=== PATIENT | male | born 1960 | race Caucasian/White ===

== ENCOUNTER 2016-10-22 19:56 | Emergency (ER) | payer OTHER ==
[~2016-10-22] VITALS: Ht 180.3 cm; Wt 79.1 kg
[2016-10-22 19:59] VITALS: BP 133/94; PULSE 90; RESP 20; TEMP 99.6; O2SAT 96
[2016-10-22] MEDS ORDERED: SODIUM CHLORIDE 0.9% FLUSH 10 ML FLUSH IVF PRN (20:45)
--- NOTE | 2016-10-22 21:00 | RADHPO ---
EXAM DATE/TIME: 10/22/2016 20:45 [place] COMPARISON: No previous studies available for comparison. INDICATIONS : Shortness of breath and cough. MEDICAL HISTORY : None. SURGICAL HISTORY : None. ENCOUNTER: Initial ACUITY: 1 day PAIN SCORE: 0/10 LOCATION: Bilateral chest FINDINGS: PA and lateral views of the chest demonstrate the lungs to be symmetrically aerated without evidence of mass, infiltrate or effusion. The cardiomediastinal contours are unremarkable. Osseous structure s are intact. CONCLUSION: No evidence of acute cardiopulmonary disease. Ronal Valenzuela MD on October 22, 2016 at 20:58 Board Certified Radiologist. This report was verified electronically.
[2016-10-22 21:10] LABS: AUTOMATED NEUTROPHIL # 7.7 TH/MM3 (1.8-7.7); BASOPHIL # 0.4 TH/MM3 (0-0.2); BASOPHIL % 3.4 % (0.0-2.0); EOSINOPHIL % 0.2 % (0.0-4.0); HEMATOCRIT 43.2 % (39.0-51.0); LYMPH % 15.4 % (9.0-44.0); LYMPHOCYTE # 1.8 TH/MM3 (1.0-4.8); MEAN CELL VOLUME 96.5 FL (80.0-100.0); MEAN CORPUSCULAR HEMOGLOBIN 32.3 PG (27.0-34.0); MEAN CORPUSCULAR HGB CONC 33.5 % (32.0-36.0); MONO % 13.4 % (0.0-8.0); NEUT % 67.6 % (16.0-70.0); PLATELET COUNT 228 TH/MM3 (150-450); RED BLOOD COUNT 4.48 MIL/MM3 (4.50-5.90); RED CELL DISTRIBUTION WIDTH 13.1 % (11.6-17.2); WHITE BLOOD COUNT 11.4 TH/MM3 (4.0-11.0)
[2016-10-22 21:12] LABS: HEMO FLAGS DIFF FINAL
[2016-10-22 21:27] LABS: CHLORIDE 101 MEQ/L (98-107); POTASSIUM 3.7 MEQ/L (3.5-5.1); SODIUM (NA) 137 MEQ/L (136-145)
[2016-10-22 21:31] LABS: ANION GAP 9 MEQ/L (5-15); BICARBONATE 27.1 MEQ/L (21.0-32.0); BLOOD UREA NITROGEN 13 MG/DL (7-18)
[2016-10-22 21:34] LABS: ALT (GPT) 45 U/L (12-78); AST (GOT) 32 U/L (15-37); GLOMERULAR FILTRATION RATE 100 ML/MIN (>89)
[2016-10-22 21:36] LABS: TOTAL BILIRUBIN ADULT 0.4 MG/DL (0.2-1.0)
[2016-10-22 21:37] LABS: ALKALINE PHOSPHATASE 76 U/L (45-117)
--- NOTE | 2016-10-22 21:38 | PD ---
HPI Chief Complaint: Respiratory Symptoms Time Seen by Provider: 20:12 Travel History International Travel<30 days: No Contact w/Intl Traveler<30days: No Traveled to known affect area: No History of Present Illness HPI Patient 56-year-old male presents with cough congestion and feeling like he can' t get all the mucus out of his chest for the past 3-4 days. Patient states she' s been coughing up some green sputum. He states is an ex smoker 6 months. States mild fevers but has not taken his temperature. Denies any body aches. Patient states having some mild shortness of breath particularly when he lies flat because the cough and comes on more aggressively. Denies any leg swelling denies any dyspnea on exertion. No history of CHF. PFSH Past Medical History Diminished Hearing: No Kidney Stones: Yes (1991) Tetanus Vaccination: > 5 Years Influenza Vaccination: No ?: Not Social History Alcohol Use: Yes (socially) Tobacco Use: No (quit 3 years ago) Substance Use: No Allergies-Medications (Allergen,Severity, Reaction): Coded Allergies: No Known Allergies (Unverified , 10/22/16) Reported Meds & Prescriptions Reported Meds & Active Scripts Active Tessalon Perles (Benzonatate) 100 Mg Cap 100 Mg PO TID PRN Guaifenesin DM Liq (Guaifenesin-Dextromethorphan Liq) 10-100 Mg/5 Ml Liq 5 Ml PO Q4H PRN Azithromycin 250 Mg Tab 250 Mg PO DIRECTED Take 2 tabs (500 mg) on day 1 then 1 tab daily x 4 days. Review of Systems Except as stated in HPI: all other systems reviewed are Neg Physical Exam Narrative GENERAL: Well-developed well-nourished no apparent distress exhibiting a hoarse cough. SKIN: Focused skin assessment warm/dry. HEAD: Atraumatic. Normocephalic. EYES: Pupils equal and round. No scleral icterus. No injection or drainage. ENT: No nasal bleeding or discharge. Mucous membranes pink and moist. TMs clear bilaterally, oropharynx clear. NECK: Trachea midline. No JVD. CARDIOVASCULAR: Regular rate and rhythm. No murmur appreciated. RESPIRATORY: No accessory muscle use. Faint rales in the left midlung. Breath sounds equal bilaterally. No increased work of breathing. GASTROINTESTINAL: Abdomen soft, non-tender, nondistended. Hepatic and splenic margins not palpable. MUSCULOSKELETAL: No obvious deformities. No clubbing. No cyanosis. No edema. NEUROLOGICAL: Awake and alert. No obvious cranial nerve deficits. Motor grossly within normal limits. Normal speech. PSYCHIATRIC: Appropriate mood and affect; insight and judgment normal. Data Data Last Documented VS Vital Signs Date Time Temp Pulse Resp B/P Pulse Ox O2 Delivery O2 Flow Rate FiO2 10/22/16 22:05 98.0 78 17 126/80 95 10/22/16 20:13 Room Air Orders Complete Blood Count With Diff (10/22/16 20:33) Comprehensive Metabolic Panel (10/22/16 20:33) Lactic Acid Sepsis Protocol (10/22/16 20:33) Chest, Pa & Lat (10/22/16 20:33) Iv Access Insert/Monitor (10/22/16 20:33) Sodium Chloride 0.9% Flush (Ns Flush) (10/22/16 20:45) Guaifen-Dm 200-20 Mg/10 Ml Liq (Robituss (10/22/16 21:45) Labs Laboratory Tests Test 10/22/16 21:00 White Blood Count 11.4 TH/MM3 Red Blood Count 4.48 MIL/MM3 Hemoglobin 14.5 GM/DL Hematocrit 43.2 % Mean Corpuscular Volume 96.5 FL Mean Corpuscular Hemoglobin 32.3 PG Mean Corpuscular Hemoglobin 33.5 % Concent Red Cell Distribution Width 13.1 % Platelet Count 228 TH/MM3 Mean Platelet Volume 7.2 FL Neutrophils (%) (Auto) 67.6 % Lymphocytes (%) (Auto) 15.4 % Monocytes (%) (Auto) 13.4 % Eosinophils (%) (Auto) 0.2 % Basophils (%) (Auto) 3.4 % Neutrophils # (Auto) 7.7 TH/MM3 Lymphocytes # (Auto) 1.8 TH/MM3 Monocytes # (Auto) 1.5 TH/MM3 Eosinophils # (Auto) 0.0 TH/MM3 Basophils # (Auto) 0.4 TH/MM3 CBC Comment DIFF FINAL Differential Comment Sodium Level 137 MEQ/L Potassium Level 3.7 MEQ/L Chloride Level 101 MEQ/L Carbon Dioxide Level 27.1 MEQ/L Anion Gap 9 MEQ/L Blood Urea Nitrogen 13 MG/DL Creatinine 0.80 MG/DL Estimat Glomerular Filtration 100 ML/MIN Rate Random Glucose 104 MG/DL Lactic Acid Level 0.8 mmol/L Calcium Level 8.9 MG/DL Total Bilirubin 0.4 MG/DL Aspartate Amino Transf 32 U/L (AST/SGOT) Alanine Aminotransferase 45 U/L (ALT/SGPT) Alkaline Phosphatase 76 U/L Total Protein 7.9 GM/DL Albumin 3.1 GM/DL MDM Medical Decision Making Medical Screen Exam Complete: Yes Emergency Medical Condition: Yes Differential Diagnosis Pneumonia, URI, bronchitis, pneumonia Narrative Course Patient roomed in the emergency department, signs symptoms consistent with URI versus pneumonia. As a very faint rales Last 24 hours Impressions Chest X-Ray 10/22/162032 Signed Impressions: Service Date/Time: Saturday, October 22, 2016 20:45 - CONCLUSION: No evidence of acute cardiopulmonary disease. Ronal Valenzuela MD There is some prominence of the bilateral hilar markings could be consistent with atypical pneumonia. Patient's labs show minimal elevation of white blood count 11.4. Monocyte predominance. Skin be consistent with mononucleosis. Chemistry is within normal limits. Discussed the patient differential diagnosis remains mononucleosis versus atypical pneumonia. We'll be placed on azithromycin. Discussed need follow-up the primary care physician since medic management home. Discussed splenic precautions for mononucleosis. Diagnosis Primary Impression: Atypical pneumonia Patient Instructions: Acute Cough (ED), General Instructions Med/Other Pt SpecificInfo: Prescription(s) given Scripts Benzonatate (Tessalon Perles)100 Mg [id number] Mg PO TID PRN (COUGH) #30 CAP Ref 0 Prov:Mickey Weiner MD 10/22/16 Guaifenesin-Dextromethorphan Liq (Guaifenesin DM Liq)10-100 Mg/5 Ml Liq5 Ml PO Q4H PRN (COUGH) #1 BOTTLE Ref 0 Prov:Mickey Weiner MD 10/22/16 Azithromycin 250 Mg [id number] Mg PO DIRECTED #6 TAB Ref 0 Take 2 tabs (500 mg) on day 1 then 1 tab daily x 4 days. Prov:Mickey Weiner MD 10/22/16 Disposition: 01 DISCHARGE HOME Condition: Stable Mickey Weiner MD Oct 22, 2016 21:38
[2016-10-22] MEDS ORDERED: guaiFENesin/DEXTROMETHORPHAN 200 MG/20 MG/10 ML CUP PO ONE (21:45)
[2016-10-22] MEDS ORDERED: GUAISYP7 PO (21:52)
[2016-10-22] MEDS ORDERED: AZIT250T3 PO (21:52)
[2016-10-22] MEDS ORDERED: BENZ100 PO (21:53)
[2016-10-22 22:05] VITALS: BP 126/80; TEMP 98
== END 2016-10-22 22:13 | disposition home or self-care (01) ==
LOC: PHED 19:56
DX: J18.9 Pneumonia, unspecified organism (principal)
CPT/HCPCS: 71020; 80053; 83605; 85025; 99283